=== PATIENT | female | born 1980 | race Caucasian/White ===

== ENCOUNTER 2016-12-04 15:24 | Inpatient (IN) ==
--- NOTE | 2016-12-04 16:34 | Emergency Department Note ---
Disposition Clinical Impression: Suicide attempt, Suicidal ideation, History of depression Medication overdose Qualifiers: Encounter type: initial encounter Injury intent: intentional self-harm Qualified Code(s): T50.902A - Poisoning by unspecified drugs, medicaments and biological substances, intentional self-harm, initial encounter Disposition: Admitted As Inpatient Time of Disposition: 21:14 (1A admission) Psych HPI - General Chief Complaint: ED Psychiatric Symptoms Stated Complaint: SI Time Seen by Provider: 12/04/16 16:13 Source: patient, family Mode of arrival: ambulatory Limitations: no limitations Nursing Notes Reviewed: Yes Vital Signs Reviewed: Yes - History of Present Illness HPI Narrative: Patient is a 36-year-old female with past medical history of muscular dystrophy , anxiety and depression. She presents today due to suicide attempt by taking 25 equate brand women's multi vitamin and drinking a glass of water with soap mixed in it. He says that she had one episode of vomiting after swallowing all of this. She is unsure of how many vitamins she kept down. Aunt accompanies her and is guardian. Patient lives with her aunt and states that while he was gone, she took these medications as a suicide attempt. Patient's aunt says that she also took two 800 mg last week as a suicide attempt. The patient was seen and evaluated by psychiatric services here within the past year. The patient refuses to take any of her medications, refuses therapy because "it makes her feel weak. " She now states that she is willing to accept help. She denies taking any other medications today. She does have a scratch on her left wrist and states that she was trying to cut but was not strong enough to cause any damage. Denies any visual or auditory hallucinations, denies homicidal ideation. - Related Data Home Medications Medication Instructions Recorded Confirmed No Known Home Drugs 12/04/16 12/04/16 Allergies Allergy/AdvReac Type Severity Reaction Status Date / Time No Known Allergies Allergy Verified 03/14/16 17:25 All systems ED: reviewed and negative except as stated. Constitutional: Denies: fever Cardiovascular: Denies: chest pain, palpitations Respiratory: Denies: cough, dyspnea Gastrointestinal: Reports: vomiting. Denies: abdominal pain, nausea, diarrhea Genitourinary: Denies: urgency, dysuria Musculoskeletal: Denies: back pain Neurological: Denies: headache Past Medical History - Past Medical History Attestation: Yes The following information was validated with the patient. Source: patient Medical history: Reports: other Psychiatric history: Reports: depression - Social History Smoking Status: Never smoker Smokeless Tobacco Status: No Alcohol use: Reports: none Drug use: Reports: none Physical Exam - General Limitations: no limitations General appearance: alert - Head Head exam: atraumatic, normocephalic, normal inspection - Eye Eye exam: Present: normal appearance, PERRL, EOMI - ENT ENT exam: normal exam, normal oropharynx, mucous membranes moist - Neck Neck exam: Present: normal inspection, full ROM, trachea midline - Chest Chest inspection: Present: normal inspection, symmetric chest wall rise - Respiratory Respiratory exam: Present: normal lung sounds bilaterally - Cardiovascular Cardiovascular exam: Present: regular rate, normal rhythm, normal heart sounds - Abdominal Exam Abdominal exam: Present: soft, Non-Tender. Absent: tenderness, distention, guarding, rebound, rigidity - Extremities Exam Extremities exam: Present: full ROM, other (Bluish discoloration from the calves down the bilateral lower extremities that is chronic for the patient; decreased strength of bilateral lower extremity due to muscular dystrophy.). Absent: tenderness, calf tenderness - Neurological Exam Neurological exam: Present: alert, oriented X3 - Psychiatric Psychiatric exam: Present: normal mood, flat affect - Skin Skin exam: Present: warm, dry, intact, normal color Course Course Narrative: Vitals within normal limits. Physical exam shows heart regular rhythm, clear lungs, benign abdominal exam. Bluish discoloration from the calves down the bilateral lower extremities that is chronic for the patient; decreased strength of bilateral lower extremity due to muscular dystrophy. Poison control was called, I talked with Liam. She recommended basic medical clearance labs and observation for 3-4 hours. She calculated the dosing of the iron that is present in the vitamins. She said is around 18 mg of iron per pill. For there to be any significant concern, patient would have to swallow 120 of these tablets. The acceptable limit is 40 mg of iron per kilogram. Liam calculated this and patient is currently at around 8 mg/kg of iron consumption. She did not recommend any x-rays to assess for bezoar because of the low amount of iron that was in each pill. We will obtain medical clearance labs, observe the patient, and then will have 1A evaluate her. 18:45 Patient observed 3 hours, labs are noncerning. Medically cleared, 1A contacted and will evaluate. 21:13 patient evaluated by behavioral health team. They will be admitting the patient. Sophia slip on chart. Vital Signs Temperature 98.1 F 12/04/16 15:34 Pulse Rate 101 12/04/16 15:34 Respiratory Rate 18 12/04/16 15:34 Blood Pressure 134/95 12/04/16 15:34 O2 Sat by Pulse Oximetry 96 12/04/16 15:34 Temperature 98.1 F 12/04/16 15:34 Pulse Rate 101 12/04/16 18:23 Respiratory Rate 16 12/04/16 21:23 Blood Pressure 136/86 12/04/16 21:23 O2 Sat by Pulse Oximetry 96 12/04/16 18:23 Oxygen Delivery Oxygen Delivery Room Air Psych - MDM Narrative Medical decision making narrative: Vitals within normal limits. Physical exam shows heart regular rhythm, clear lungs, benign abdominal exam. Bluish discoloration from the calves down the bilateral lower extremities that is chronic for the patient; decreased strength of bilateral lower extremity due to muscular dystrophy. Poison control was called, I talked with Liam. She recommended basic medical clearance labs and observation for 3-4 hours. She calculated the dosing of the iron that is present in the vitamins. She said is around 18 mg of iron per pill. For there to be any significant concern, patient would have to swallow 120 of these tablets. The acceptable limit is 40 mg of iron per kilogram. Liam calculated this and patient is currently at around 8 mg/kg of iron consumption. She did not recommend any x-rays to assess for bezoar because of the low amount of iron that was in each pill. We will obtain medical clearance labs, observe the patient, and then will have 1A evaluate her. 18:45 Patient observed 3 hours, labs are noncerning. Medically cleared, 1A contacted and will evaluate. 21:13 patient evaluated by behavioral health team. They will be admitting the patient. Sophia slip on chart. - Medical Records Medical records reviewed: Yes I reviewed the patient's medical records. - Lab Data Lab results reviewed: Yes I reviewed the patient's lab results. Result diagrams: 12/04/16 16:35 12/04/16 16:35 Lab Results 12/04/16 12/04/16 12/04/16 Range/Units 16:35 16:35 17:55 WBC 10.3 (4.3-11.1) K/mcL RBC 5.34 H (3.82-4.97) M/mcL Hgb 16.0 H (11.5-15.4) g/dL Hct 46.6 H (35.3-44.9) % MCV 87.3 (83.0-100.0) fL MCH 30.0 (28.0-33.3) pg MCHC 34.3 (31.6-35.5) g/dL RDW 12.5 (11.5-14.5) % Plt Count 214 (140-400) K/mcL MPV 10.7 (9.4-12.4) fL Immature Gran % 0.4 (0-4) % Seg Neutrophils % 72.3 % Lymphocytes % 21.3 % Monocytes % 5.5 % Eosinophils % 0.1 % Basophils % 0.4 % Neutrophils # 7.4 (1.6-8.9) K/mcL Lymphocytes # 2.2 (0.6-4.6) K/mcL Monocytes # 0.6 (0.0-1.3) K/mcL Eosinophils # 0.0 (0.0-0.6) K/mcL Basophils # 0.0 (0.0-0.2) K/mcL Sodium 138 (136-145) mEq/L Potassium 3.7 (3.5-4.5) mEq/L Chloride 105 (98-109) mEq/L Carbon Dioxide 22 (19-29) mEq/L BUN 5 L (7-20) mg/dL Creatinine 0.41 L (0.57-1.11) mg/dL Est GFR ( Amer) > 60 (> 60) Est GFR (Non-Af Amer) > 60 (> 60) BUN/Creatinine Ratio 12 (6-26) Glucose 112 H (70-99) mg/dL Calculated Osmolality 284 (280-300) Calcium 9.9 (8.6-10.8) mg/dL Urine Color Yellow (Yellow) Urine Clarity Cloudy A (Clear) Urine pH 6.0 (5.0-8.0) pH Units Ur Specific [place] 1.017 (1.010-1.025) Urine Protein Negative (Neg-Trace) mg/dL Urine Glucose (UA) Normal (Normal) mg/dL Urine Ketones 15 H (Negative) mg/dL Urine Blood Negative (Negative) Urine Nitrite Negative (Negative) Urine Bilirubin Negative (Negative) Urine Urobilinogen Normal (Normal) mg/dL Ur Leukocyte Esterase Negative (Negative) Urine Microscopic RBC 0-3 (0-3) per hpf Urine Microscopic WBC 0-3 (0-3) per hpf Ur Squamous Epith Cells Many H (None-Few) per lpf Urine Bacteria None Seen (None-Few) per hpf Hyaline Casts None Seen (None-Few) per lpf Urine Test (Negative) Salicylates < 5.0 L (15-30) mg/dL Urine Opiates Screen (Pqqbvp=330) ng/mL Acetaminophen < 1.0 L (10-30) mcg/mL Ur Barbiturates Screen (Cltqtc=407) ng/mL Ur Phencyclidine Scrn (Cutoff=25) ng/mL Ur Amphetamines Screen (Ynabsq=4920) ng/mL U Benzodiazepines Scrn (Xyqyww=940) ng/mL Urine Cocaine Screen (Cutoff= 300) ng/mL U Marijuana (THC) Screen (Cutoff = 50) ng/mL Ethyl Alcohol < 10 (0-10) mg/dL 12/04/16 12/04/16 Range/Units 17:55 17:55 WBC (4.3-11.1) K/mcL RBC (3.82-4.97) M/mcL Hgb (11.5-15.4) g/dL Hct (35.3-44.9) % MCV (83.0-100.0) fL MCH (28.0-33.3) pg MCHC (31.6-35.5) g/dL RDW (11.5-14.5) % Plt Count (140-400) K/mcL MPV (9.4-12.4) fL Immature Gran % (0-4) % Seg Neutrophils % % Lymphocytes % % Monocytes % % Eosinophils % % Basophils % % Neutrophils # (1.6-8.9) K/mcL Lymphocytes # (0.6-4.6) K/mcL Monocytes # (0.0-1.3) K/mcL Eosinophils # (0.0-0.6) K/mcL Basophils # (0.0-0.2) K/mcL Sodium (136-145) mEq/L Potassium (3.5-4.5) mEq/L Chloride (98-109) mEq/L Carbon Dioxide (19-29) mEq/L BUN (7-20) mg/dL Creatinine (0.57-1.11) mg/dL Est GFR ( Amer) (> 60) Est GFR (Non-Af Amer) (> 60) BUN/Creatinine Ratio (6-26) Glucose (70-99) mg/dL Calculated Osmolality (280-300) Calcium (8.6-10.8) mg/dL Urine Color (Yellow) Urine Clarity (Clear) Urine pH (5.0-8.0) pH Units Ur Specific [place] (1.010-1.025) Urine Protein (Neg-Trace) mg/dL Urine Glucose (UA) (Normal) mg/dL Urine Ketones (Negative) mg/dL Urine Blood (Negative) Urine Nitrite (Negative) Urine Bilirubin (Negative) Urine Urobilinogen (Normal) mg/dL Ur Leukocyte Esterase (Negative) Urine Microscopic RBC (0-3) per hpf Urine Microscopic WBC (0-3) per hpf Ur Squamous Epith Cells (None-Few) per lpf Urine Bacteria (None-Few) per hpf Hyaline Casts (None-Few) per lpf Urine Test Negative (Negative) Salicylates (15-30) mg/dL Urine Opiates Screen Negative (Puuuko=057) ng/mL Acetaminophen (10-30) mcg/mL Ur Barbiturates Screen Negative (Jikeej=567) ng/mL Ur Phencyclidine Scrn Negative (Cutoff=25) ng/mL Ur Amphetamines Screen Negative (Pxfzaw=4731) ng/mL U Benzodiazepines Scrn Negative (Pyhbit=231) ng/mL Urine Cocaine Screen Negative (Cutoff= 300) ng/mL U Marijuana (THC) Screen Negative (Cutoff = 50) ng/mL Ethyl Alcohol (0-10) mg/dL Psychiatric Medical Clearance - Medical Clearance Checklist Medical History: No Social History Section defined Current Vitals: Last Vital Signs Temp 98.1 F 12/04/16 15:34 Pulse 101 12/04/16 18:23 Resp 16 12/04/16 21:23 BP 136/86 12/04/16 21:23 Pulse Ox 96 12/04/16 18:23 Psychiatric Lab Panel: Drug Levels and Toxicity 12/04/16 12/04/16 16:35 17:55 Urine Opiates Screen Negative Acetaminophen < 1.0 L Ur Barbiturates Screen Negative Ur Phencyclidine Scrn Negative Ur Amphetamines Screen Negative U Benzodiazepines Scrn Negative Urine Cocaine Screen Negative U Marijuana (THC) Screen Negative Ethyl Alcohol < 10 Abnormal Labs: Abnormal lab results RBC 5.34 M/mcL (3.82-4.97) H 12/04/16 16:35 Hgb 16.0 g/dL (11.5-15.4) H 12/04/16 16:35 Hct 46.6 % (35.3-44.9) H 12/04/16 16:35 BUN 5 mg/dL (7-20) L 12/04/16 16:35 Creatinine 0.41 mg/dL (0.57-1.11) L 12/04/16 16:35 Glucose 112 mg/dL (70-99) H 12/04/16 16:35 Urine Clarity Cloudy (Clear) A 12/04/16 17:55 Urine Ketones 15 mg/dL (Negative) H 12/04/16 17:55 Ur Squamous Epith Cells Many per lpf (None-Few) H 12/04/16 17:55 Salicylates < 5.0 mg/dL (15-30) L 12/04/16 16:35 Acetaminophen < 1.0 mcg/mL (10-30) L 12/04/16 16:35 Attestation Statement - Attestation Attestation: I, Gualberto Wilkinson, examined this patient and my medical decision-making was reviewed with the WASH HOUSE WORKER/PA/Advanced Practice Nurse/Resident Physician. I agree with the documented findings, disposition and treatment plan as described except to the extent set forth below. 56-year-old female brought to the emergency department for concerns of suicidal ideation. Patient states she took 25 women's multivitamin equate brand and 2 glasses of this show mixed with water in attempts to end her life. Patient has a history of muscular dystrophy and is very depressed about her inability to ambulate. Patient will be medically cleared and she will be evaluated by behavioral health.
[2016-12-04 16:44] LABS: Basophils % 0.4 %; Eosinophils % 0.1 %; Hematocrit 46.6 % (35.3-44.9); Immature Granulocytes % 0.4 % (0-4); Lymphocytes # 2.2 K/mcL (0.6-4.6); Lymphocytes % 21.3 %; Mean Corpuscular HGB Conc 34.3 g/dL (31.6-35.5); Mean Corpuscular Volume 87.3 fL (83.0-100.0); Mean Platelet Volume 10.7 fL (9.4-12.4); Monocytes # 0.6 K/mcL (0.0-1.3); Monocytes % 5.5 %; Neutrophils # 7.4 K/mcL (1.6-8.9); Platelet Count 214 K/mcL (140-400); Red Blood Count 5.34 M/mcL (3.82-4.97); Red Cell Distribution Width 12.5 % (11.5-14.5); Segmented Neutrophils % 72.3 %
[2016-12-04 16:55] LABS: BUN/Creatinine Ratio 12 (6-26); Calcium 9.9 mg/dL (8.6-10.8); Carbon Dioxide 22 mEq/L (19-29); Chloride 105 mEq/L (98-109); Glucose 112 mg/dL (70-99); Osmolality,Calculated 284 (280-300); Potassium 3.7 mEq/L (3.5-4.5); Sodium 138 mEq/L (136-145); eGFR For African Americans > 60 (> 60); eGFR For Non-African Americans > 60 (> 60)
[2016-12-04 16:57] LABS: Acetaminophen < 1.0 mcg/mL (10-30); Blood Urea Nitrogen 5 mg/dL (7-20); Ethanol < 10 mg/dL (0-10); Salicylate < 5.0 mg/dL (15-30)
[2016-12-04 18:07] LABS: Bilirubin,Urine Negative (Negative); Blood,Urine Negative (Negative); Clarity,Urine Cloudy (Clear); Color,Urine Yellow (Yellow); Glucose,Urine (UA) Normal (Normal); Ketones,Urine 15 mg/dL (Negative); Leukocyte Esterase,Urine Negative (Negative); Nitrite,Urine Negative (Negative); Protein,Urine Negative (Neg-Trace); Specific Gravity,Urine 1.017 (1.010-1.025); Urobilinogen,Urine Normal (Normal)
[2016-12-04 18:09] LABS: Bacteria,Urine None Seen per hpf (None-Few); Hyaline Casts,Urine None Seen per lpf (None-Few); RBC,Urine 0-3 per hpf (0-3); Squamous Epithelial Cell,Urine Many per lpf (None-Few); WBC,Urine 0-3 per hpf (0-3)
[2016-12-04 18:40] LABS: Amphetamine Screen,Urine Negative ng/mL (Cutoff=1000); Barbiturate Screen,Urine Negative ng/mL (Cutoff=200); Benzodiazepines Screen,Urine Negative ng/mL (Cutoff=200); Cannabinoid Screen,Urine Negative ng/mL (Cutoff = 50); Cocaine Screen,Urine Negative ng/mL (Cutoff= 300); Opiate Screen,Urine Negative ng/mL (Cutoff=300); Phencyclidine Screen,Urine Negative ng/mL (Cutoff=25)
[2016-12-04] MEDS ORDERED: Ibuprofen 400 MG TABLET PO PRN (21:36)
[2016-12-04] MEDS ORDERED: *HR* LORazepam 2 MG/ML VIAL IM PRN (21:36)
[2016-12-04] MEDS ORDERED: Mag Hydrox/Al Hydrox/Simeth 30 ML UDC PO PRN (21:36)
[2016-12-04] MEDS ORDERED: Haloperidol Lactate 5 MG/ML VIAL IM PRN (21:36)
[2016-12-04] MEDS ORDERED: MOM Conc 10 ML UD.LIQ PO PRN (21:36)
[2016-12-04] MEDS ORDERED: *HR* LORazepam 1 MG TABLET PO PRN (21:36)
[2016-12-05] MEDS: hydrOXYzine pamoate 25 MG CAPSULE PO PRN (06:23)
--- NOTE | 2016-12-05 10:36 | Psychiatry History & Physical ---
Date of Encounter: 12/05/16 Time of Encounter: 09:30 History of Present Illness Patient Stated Chief Complaint: Suicide attempt by overdose Medicare Admission Attestation: For traditional Medicare patients the provided hospital inpatient services are reasonable and necessary and in the case of services not specified as inpatient -only under 42 CFR 419.22 (n), that they are appropriately provided as inpatient services in accordance 42 CFR 412.3. For Critical Access Hospital the patient may reasonably be expected to be discharged or transferred to a hospital within 96 hours after admission to the Critical Access Hospital. Admitted From: Emergency Dept History of Present Illness: Ms. Rodriguez is a 36 year old female admitted from the emergency room for depression and suicide attempt by overdosing on vitamins. Patient had a history of muscular dystrophy and depression and anxiety with psychosis. Recently the patient stopped taking her medication and refused to attend follow- up appointments for therapy and medication management and was feeling hopeless and having suicidal ideation and she attempted suicide by overdosing on multiple vitamins. Patient had long history of treatment for depression and has been treated by different medication most recent hospitalization was in April 2016 and at that time she was discharged on medication including Zyprexa BuSpar and Lexapro. She is frustrated by her limitations and feels that she is a burden to people. Past Med Surg Social Fam HX - Past Medical History Medical history: other - Past Psychiatric History Psychiatric history: Reports: anxiety, depression, prior suicide attempt, previous psychiatric hospitalization - Social History Smoking Status: Never smoker Smokeless Tobacco Status: No Alcohol use: none Drug use: none Medications & Allergies No Known Home Drugs 12/04/16 [History] Allergies No Known Allergies Allergy (Verified 03/14/16 17:25) Review of Systems Psychiatric: Reports: depression, suicidal ideation, hopelessness Mental Status Exam Patient orientation: Yes Person, Yes Time, Yes Place Level of alertness: Alert Patient appearance: Appropriate, Well Groomed, Thin Behavior: calm, cooperative, anxious, suspicious, withdrawn, other (In a wheelchair due to muscular dystrophy) Psychomotor activity: Slowed Eye contact: Minimal Contact Mood description: Depressed, Anxious Affect description: congruent with mood, constricted, blunted Speech pattern: Normal rate, Normal rhythm, Normal tone, Slowed, Limited Speech volume: Soft/Quiet Thought process: Linear, Goal Oriented Thought content: Yes Suicidal ideation, No Homicidal ideation, No Overt delusions Perceptual disturbances: No Auditory hallucinations, No Visual hallucinations Attention span: Capable of Focused Attention Memory description: Grossly Intact Patient reliability: Reliable Historian Intelligence estimate: Average Judgment: Limited Insight: Partial Results - Vital Signs Vital signs: Temp Pulse Resp BP Pulse Ox 99.4 F 109 20 129/99 96 12/05/16 08:50 12/05/16 08:50 12/05/16 08:50 12/05/16 08:50 12/04/16 18:23 - Labs Labs: Laboratory Last Values WBC 10.3 K/mcL (4.3-11.1) 12/04/16 16:35 RBC 5.34 M/mcL (3.82-4.97) H 12/04/16 16:35 Hgb 16.0 g/dL (11.5-15.4) H 12/04/16 16:35 Hct 46.6 % (35.3-44.9) H 12/04/16 16:35 MCV 87.3 fL (83.0-100.0) 12/04/16 16:35 MCH 30.0 pg (28.0-33.3) 12/04/16 16:35 MCHC 34.3 g/dL (31.6-35.5) 12/04/16 16:35 RDW 12.5 % (11.5-14.5) 12/04/16 16:35 Plt Count 214 K/mcL (140-400) 12/04/16 16:35 MPV 10.7 fL (9.4-12.4) 12/04/16 16:35 Immature Gran % 0.4 % (0-4) 12/04/16 16:35 Seg Neutrophils % 72.3 % 12/04/16 16:35 Lymphocytes % 21.3 % 12/04/16 16:35 Monocytes % 5.5 % 12/04/16 16:35 Eosinophils % 0.1 % 12/04/16 16:35 Basophils % 0.4 % 12/04/16 16:35 Neutrophils # 7.4 K/mcL (1.6-8.9) 12/04/16 16:35 Lymphocytes # 2.2 K/mcL (0.6-4.6) 12/04/16 16:35 Monocytes # 0.6 K/mcL (0.0-1.3) 12/04/16 16:35 Eosinophils # 0.0 K/mcL (0.0-0.6) 12/04/16 16:35 Basophils # 0.0 K/mcL (0.0-0.2) 12/04/16 16:35 Sodium 138 mEq/L (136-145) 12/04/16 16:35 Potassium 3.7 mEq/L (3.5-4.5) 12/04/16 16:35 Chloride 105 mEq/L (98-109) 12/04/16 16:35 Carbon Dioxide 22 mEq/L (19-29) 12/04/16 16:35 BUN 5 mg/dL (7-20) L 12/04/16 16:35 Creatinine 0.41 mg/dL (0.57-1.11) L 12/04/16 16:35 Est GFR ( Amer) > 60 (> 60) 12/04/16 16:35 Est GFR (Non-Af Amer) > 60 (> 60) 12/04/16 16:35 BUN/Creatinine Ratio 12 (6-26) 12/04/16 16:35 Glucose 112 mg/dL (70-99) H 12/04/16 16:35 Calculated Osmolality 284 (280-300) 12/04/16 16:35 Calcium 9.9 mg/dL (8.6-10.8) 12/04/16 16:35 Urine Color Yellow (Yellow) 12/04/16 17:55 Urine Clarity Cloudy (Clear) A 12/04/16 17:55 Urine pH 6.0 pH Units (5.0-8.0) 12/04/16 17:55 Ur Specific [place] 1.017 (1.010-1.025) 12/04/16 17:55 Urine Protein Negative mg/dL (Neg-Trace) 12/04/16 17:55 Urine Glucose (UA) Normal mg/dL (Normal) 12/04/16 17:55 Urine Ketones 15 mg/dL (Negative) H 12/04/16 17:55 Urine Blood Negative (Negative) 12/04/16 17:55 Urine Nitrite Negative (Negative) 12/04/16 17:55 Urine Bilirubin Negative (Negative) 12/04/16 17:55 Urine Urobilinogen Normal mg/dL (Normal) 12/04/16 17:55 Ur Leukocyte Esterase Negative (Negative) 12/04/16 17:55 Urine Microscopic RBC 0-3 per hpf (0-3) 12/04/16 17:55 Urine Microscopic WBC 0-3 per hpf (0-3) 12/04/16 17:55 Ur Squamous Epith Cells Many per lpf (None-Few) H 12/04/16 17:55 Urine Bacteria None Seen per hpf (None-Few) 12/04/16 17:55 Hyaline Casts None Seen per lpf (None-Few) 12/04/16 17:55 Urine Test Negative (Negative) 12/04/16 17:55 Salicylates < 5.0 mg/dL (15-30) L 12/04/16 16:35 Urine Opiates Screen Negative ng/mL (Nesgdh=376) 12/04/16 17:55 Acetaminophen < 1.0 mcg/mL (10-30) L 12/04/16 16:35 Ur Barbiturates Screen Negative ng/mL (Yyrtgl=596) 12/04/16 17:55 Ur Phencyclidine Scrn Negative ng/mL (Cutoff=25) 12/04/16 17:55 Ur Amphetamines Screen Negative ng/mL (Grvuhm=6034) 12/04/16 17:55 U Benzodiazepines Scrn Negative ng/mL (Crorqk=938) 12/04/16 17:55 Urine Cocaine Screen Negative ng/mL (Cutoff= 300) 12/04/16 17:55 U Marijuana (THC) Screen Negative ng/mL (Cutoff = 50) 12/04/16 17:55 Ethyl Alcohol < 10 mg/dL (0-10) 12/04/16 16:35 Assessment and Plan (1) Depression, major, recurrent, severe with psychosis Current visit: Yes Status: Acute Plan: Admit inpatient for safety and stabilization, Close observation, Suicide Precautions per unit protocol, Encourage participation in unit milieu, Group Therapy, Monitor sleep, Monitor appetite Risks, benefits, side effects, alternatives discussed w/pt: Yes Patient agreeable to treatment: Yes Estimated Length of Stay (Days): 5
[2016-12-05] MEDS ORDERED: OLANZapine 5 MG TAB.RAPDIS PO SCH (18:00)
[2016-12-05] MEDS: traZODone 50 MG TABLET PO PRN (20:16)
--- NOTE | 2016-12-06 15:12 | Psychiatry Progress Note ---
Date of Encounter: 12/06/16 Time of Encounter: 01:45 Subjective Interval history: Patient seen and interviewed. History and physical examination reviewed. According to the nursing staff patient has been nervous and anxious and paranoid. She fears that something has happened to her aunt and no one is there to take care of the animals. She was also paranoid towards the staff and repeatedly asked to see the ID badge. Upon interview today when I spoke with her she also appeared nervous and anxious but she was denying any paranoid delusions however he was worrying excessively about the animals at home and how will they be taken care of. Patient feels that because of her limitation she will not be able to take care of the animals. Patient reported that she is nervous and is worrying about little things. I encouraged the patient to attend groups and participate in activities. Review of Systems Psychiatric: Reports: depression, suicidal ideation, hopelessness Objective: Exam Patient orientation: Yes Person, Yes Time, Yes Place Level of alertness: Alert Patient appearance: Appropriate, Well Groomed Behavior: nervous, anxious Psychomotor activity: Normal Eye contact: Maintains Eye Contact Mood description: Depressed, Anxious Affect description: congruent with mood, full range Speech pattern: Normal rate, Normal rhythm, Normal tone Speech volume: Soft/Quiet Thought process: Linear, Goal Oriented Thought content: Yes Ideas of reference, Yes Paranoid delusion Perceptual disturbances: No Auditory hallucinations, No Visual hallucinations Judgment: Limited Insight: Minimal Results - Vital Signs Vital Signs: Temp Pulse Resp BP Pulse Ox 98 F 109 18 132/87 96 12/06/16 09:00 12/06/16 09:00 12/06/16 09:00 12/06/16 09:00 12/04/16 18:23 Assessment and Plan (1) Psychosis Current visit: Yes Status: Acute Plan: Continue hospitalization, Close observation, Suicide Precautions per unit protocol, Encourage participation in unit milieu, Group Therapy, Monitor sleep, Monitor appetite, Secure weapons Additional Plan: We will increase Zyprexa to 7.5 mg at bedtime Risks, benefits, side effects, alternatives discussed w/pt: Yes Patient agreeable to treatment: Yes Qualifiers: Psychosis type: unspecified psychosis type Qualified Code(s): F29 - Unspecified psychosis not due to a substance or known physiological condition Consult Discharge Plan - Plan Referrals: NO,PCP [Primary Care Provider] -
[2016-12-06] MEDS: hydrOXYzine pamoate 25 MG CAPSULE PO PRN (17:16)
[2016-12-06] MEDS: traZODone 50 MG TABLET PO PRN (20:13)
[2016-12-06] MEDS ORDERED: OLANZapine 5 MG TAB.RAPDIS PO SCH (21:00)
[2016-12-07] MEDS ORDERED: OLANZapine 5 MG TAB.RAPDIS PO SCH (09:00)
--- NOTE | 2016-12-07 10:14 | Psychiatry Progress Note ---
Date of Encounter: 12/07/16 Time of Encounter: 09:15 Subjective Interval history: Patient seen and interviewed. Continue to remain paranoid and delusional and anxious. Patient reported that she fears that people will harm her aunt. When explored patient said that she was observing people in cars stopping encircling their house and she fears that her aunt will not be able to protect her. I reviewed patient's records from her previous hospitalization. It was noted that patient was discharged on 5 mg of Zyprexa in the morning and 10 mg at bedtime and in addition she was discharged on Lexapro and BuSpar. At this point I would initiate BuSpar to address patient's anxiety and will increase the Zyprexa. I discussed it with patient and she is agreeable with this plan. I also encouraged the patient to process and work through some of these irrational fears and anxieties. Review of Systems Psychiatric: Reports: depression (paranoia), suicidal ideation, hopelessness Objective: Exam Patient orientation: Yes Person, Yes Time, Yes Place Level of alertness: Alert Patient appearance: Unkempt, Thin Behavior: nervous, anxious Psychomotor activity: Slowed Eye contact: Minimal Contact Mood description: Depressed, Anxious Affect description: blunted, dysphoric Speech pattern: Slowed Speech volume: Soft/Quiet Thought process: [place] Thought content: No Suicidal ideation, No Homicidal ideation, Yes Ideas of reference, Yes Paranoid delusion Perceptual disturbances: No Auditory hallucinations, No Visual hallucinations Judgment: Limited Insight: Minimal Results - Vital Signs Vital Signs: Temp Pulse Resp BP Pulse Ox 97.8 F 100 16 122/87 96 12/07/16 09:00 12/07/16 09:00 12/07/16 09:00 12/07/16 09:00 12/04/16 18:23 Assessment and Plan (1) Psychosis Current visit: Yes Status: Acute Plan: Continue hospitalization, Close observation, Suicide Precautions per unit protocol, Encourage participation in unit milieu, Group Therapy, Monitor sleep, Monitor appetite Additional Plan: I will increase Zyprexa 5 mg in the morning and 10 mg at bedtime which is the same dose that patient responded well in the previous hospitalization. I will also add BuSpar 10 mg twice a day. We will consider adding Lexapro patient's depression and anxiety continues Risks, benefits, side effects, alternatives discussed w/pt: Yes Patient agreeable to treatment: Yes Qualifiers: Psychosis type: unspecified psychosis type Qualified Code(s): F29 - Unspecified psychosis not due to a substance or known physiological condition Consult Discharge Plan - Plan Referrals: NO,PCP [Primary Care Provider] -
[2016-12-07] MEDS: OLANZapine 5 MG TAB.RAPDIS PO SCH (21:17)
[2016-12-08] MEDS: OLANZapine 5 MG TAB.RAPDIS PO SCH ×2 (09:27→22:07)
--- NOTE | 2016-12-08 14:03 | Psychiatry Progress Note ---
Date of Encounter: 12/08/16 Time of Encounter: 14:00 Subjective Interval history: Patient she will follow-up. Staff report she is improving, more cooperative, compliant with medication. No reports of suicidal ideation or delusions, she is less suspicious and reported improved sleep and appetite. She had good conversation with me today and she is interested in having occupational therapy to help her with transferring in and out of the wheelchair. She is showing improved insight. Review of Systems Psychiatric: Reports: depression (paranoia), suicidal ideation, hopelessness Objective: Exam Patient orientation: Yes Person, Yes Time, Yes Place Level of alertness: Alert Patient appearance: Appropriate, Well Groomed Behavior: calm, cooperative, suspicious Psychomotor activity: Normal Eye contact: Maintains Eye Contact Mood description: Euthymic/stable Affect description: congruent with mood, constricted Speech pattern: Normal rate, Normal rhythm, Normal tone Speech volume: Normal Thought process: Linear, Goal Oriented Thought content: No Suicidal ideation, No Homicidal ideation, No Overt delusions , Yes Paranoid delusion Perceptual disturbances: No Auditory hallucinations, No Visual hallucinations Judgment: Fair Insight: Partial Results - Vital Signs Vital Signs: Temp Pulse Resp BP Pulse Ox 97.6 F 99 16 122/88 96 12/08/16 09:00 12/08/16 09:00 12/08/16 09:00 12/08/16 09:00 12/04/16 18:23 Assessment and Plan (1) Depression, major, recurrent, severe with psychosis Current visit: Yes Status: Acute Plan: Continue hospitalization, Close observation, Suicide Precautions per unit protocol, Encourage participation in unit milieu, Group Therapy, Monitor sleep, Monitor appetite Additional Plan: Occupational therapy referral Risks, benefits, side effects, alternatives discussed w/pt: Yes Patient agreeable to treatment: Yes Consult Discharge Plan - Plan Referrals: NO,PCP [Primary Care Provider] -
[2016-12-09] MEDS: OLANZapine 5 MG TAB.RAPDIS PO SCH ×2 (09:38→21:04)
[2016-12-09 09:44] VITALS: BP 120/85
--- NOTE | 2016-12-09 10:42 | Discharge Summary ---
Date of Encounter: 12/09/16 Time of Encounter: 10:00 Diagnosis - Discharge Diagnosis (1) Depression, major, recurrent, severe with psychosis Status: Acute Medications - Discharge Medications Prescriptions: Buspirone HCl [Buspar] 10 mg PO BID #60 tablet OLANZapine [Zyprexa Zydis] 10 mg PO HS #30 tab.rapdis OLANZapine [Zyprexa Zydis] 5 mg PO DAILY #30 tab.rapdis Buspirone HCl [Buspar] 10 mg PO BID #60 tablet 12/09/16 [Rx] OLANZapine [Zyprexa Zydis] 5 mg PO DAILY #30 tab.rapdis 12/09/16 [Rx] OLANZapine [Zyprexa Zydis] 10 mg PO HS #30 tab.rapdis 12/09/16 [Rx] Allergies No Known Allergies Allergy (Verified 03/14/16 17:25) Provider Date of admission: 12/04/16 21:16 Primary care physician: PCP NO Consults: 12/04/16 23:00 Consult to Pastoral Services [CONS] Routine Comment: Discharging clinician: Thaddeus Beck Assessment and Plan - Patient/Caregiver Discharge Instructions Activity: resume usual activities as tolerated Diet: regular diet - Follow up Plan Follow up with: [facility] [Outside] - 12/17/16 8:30 am (The above appointment is with Dr. Ramírez. This appointment is to establish you with a primary care provider. Please arrive 15 minutes early for your new patient appointment, and bring the following items with you: insurance card (if you do not have insurance bring proof of income to apply for the sliding fee scale), photo ID, and any medication you take in the original bottles. If you are unable to bring these items, your appointment will be rescheduled. If you are unable to keep this appointment, 24 hour business notice of cancellation is expected. If you miss your new patient appointment, you cannot be re-scheduled in this practice for 3 months. This practice does not prescribe narcotics or see [facility] benefit recipients. ) [facility] [Outside] - 12/11/16 11:00 am (The above appointment is with Dr. Patel, psychiatrist. Please arrive 30 minutes early for this appointment to complete paperwork. This is the first available appointment. You may contact the office regularly to check for cancellations that may allow you to be seen sooner. ) [facility] [Outside] - 12/25/16 2:30 pm (The above appointment is with Meghan to establish you as a client for counseling services. PLEASE CALL [facility] AT [phone] TO CONFIRM YOU WILL BE COMING FOR THIS APPOINTMENT. When you come to your first appointment, you will have an orientation to the agency and you will meet with a counselor. Please bring the following with you to your first visit to the clinic: 1) proof of household income (two consecutive pay stubs, social security award letter, bank statement , statement letter from [facility], child support statement, IRS 1040 or W2 form, or a statement from the person who financially supports you stating they help provide for your basic needs), 2) proof of residency (drivers license, a piece of mail showing your address, a statement from person you live with verifying you live at their address), 3) your social security card, 4) photo ID, 5) your insurance card (if you have commercial insurance you must call to obtain a prior authorization number before you arrive to your first appointment) and 6) if you do not have insurance but have applied for Medicaid, please bring verification you have applied. This is the first available appointment. You may contact the office regularly to check for cancellations that may allow you to be seen sooner. ) Functional capacity at discharge: wheelchair bound Overall status at discharge: Stable Disposition: Home, Self-Care Hospital Course Hospital course: Ms. Rodriguez is a 36 year old female admitted from the emergency room for depression and suicide attempt by overdose on medication. For details of admission please see H&P On the unit patient was resistant and refusing medication, she was suspicious and paranoid and uncooperative. I encouraged her to start back on olanzapine 5 mg she was agreeable and to review medication [place] on the dose was increased and BuSpar was restarted. Patient showed significant improvement in her mood she reported improved sleep she was not suspicious or paranoid and she denied any suicidal ideation she participated in some groups and activities. Her discharge plans were completed by the high school social studies teacher contacted her aunt and shared with her discharge plans. On discharge patient was medically stable, tolerated medication without side effects and was future oriented. - Time Spent with Patient Total time spent providing and/or coordinating discharge services: Less than 30 minutes Quality - Multiple Antipsychotics Patient discharged on 2 or more antipsychotic medications: No Procedures - Procedures Procedures: Medication Management, Crisis Stabilization, Supportive Therapy, Group Therapy, Psychoeducational Therapy Mental Status Exam - Mental Status Exam Patient orientation: Yes Person, Yes Time, Yes Place Level of alertness: Alert Patient appearance: Appropriate, Well Groomed Behavior: calm, cooperative Psychomotor activity: Normal Eye contact: Maintains Eye Contact Mood description: Euthymic/stable Affect description: congruent with mood, full range Speech pattern: Normal rate, Normal rhythm, Normal tone Speech Volume: Normal Thought process: Linear, Goal Oriented Thought Content: No Suicidal ideation, No Homicidal ideation, No Overt delusions Perceptual Disturbances: No Auditory hallucinations, No Visual hallucinations Judgment: Limited Insight: Partial
== END 2016-12-09 21:40 | disposition home or self-care (01) | DRG 918 ==
LOC: EMEROO 15:24 → 1ANU 21:10 → SUATTDRO 21:16 → 1ANU 21:16
PROVIDERS: ADMIT Psychiatry & Neurology Psychiatry; ATTEND Psychiatry & Neurology Psychiatry